=== PATIENT | female | born 1985 | race Two or more races ===

== ENCOUNTER 2021-06-04 08:26 | Outpatient (REF) | payer OTHER, SELFPAY ==
[2021-06-04 09:52] LABS: Hematocrit 33.6 % (37-47); Hemoglobin 10.4 g/dl (12.0-16.0); Mean Corpuscular Hemoglobin 25.4 pg (27.0-33.0); Mean Platelet Volume 9.4 fL (9.4-12.3); Platelet Count 368 X10*3/uL (160-400); Red Cell Distribution Width 14.2 % (11.0-16.0); White Blood Count 7.2 X10*3/uL (4.8-10.8)
[2021-06-04 10:27] LABS: Alanine Aminotransferase 10 U/L (0-31); Albumin Level 4.1 g/dL (3.5-5.0); Alkaline Phosphatase 85 U/L (39-117); Anion Gap 10 (12-20); Aspartate Amino Transferase 14 U/L (5-31); Bilirubin Total 0.4 mg/dL (0.0-1.0); Blood Urea Nitrogen 6 mg/dL (9-16); Calcium 9.7 mg/dL (8.4-10.2); Carbon Dioxide 26 mmol/L (22-29); Chloride 105 mmol/L (96-108); Estimated Glomerular Filt Rate > 60; Glucose Random 85 mg/dL (60-115); Potassium 3.9 mmol/L (3.3-5.1); Sodium 137 mmol/L (135-145); Total Protein 7.2 g/dL (6.5-8.0)
[2021-06-04 10:56] LABS: HCG Quantitative < 2 mIU/mL; Thyroid Stimulating Hormone 0.32 uIU/mL (0.32-4.0)
[2021-06-05 04:13] LABS: CT PCR NOT DETECTED (Not Detect.); NG PCR NOT DETECTED (Not Detect.)
[2021-06-05 13:00] LABS: BV Int Neg Control Negative (Negative); BV Int Pos Control Positive (Positive)
[2021-06-06 17:51] LABS: HPV mRNA E6/E7 rflx Not Detected (Not Detected)
== END 2021-06-04 08:27 | disposition home or self-care (01) ==
LOC: HO.LAB 08:26
PROVIDERS: Visit Provider Advanced Practice Midwife
DX: Z01.419 Encounter for gynecological examination (general) (routine) without abnormal findings (principal); N94.6 Dysmenorrhea, unspecified; R10.2 Pelvic and perineal pain; N92.1 Excessive and frequent menstruation with irregular cycle; N93.9 Abnormal uterine and vaginal bleeding, unspecified; L68.0 Hirsutism; R10.9 Unspecified abdominal pain; R17 Unspecified jaundice; Z79.899 Other long term (current) drug therapy; Z80.3 Family history of malignant neoplasm of breast
CPT/HCPCS: 36415; 80053; 84443; 84702; 85027; 87480; 87491; 87510; 87591; 87624; 87660; 88142

== ENCOUNTER 2021-06-23 11:42 | Outpatient (REF) | payer OTHER, SELFPAY ==
--- NOTE | ~2021-06-23 | US_ITS ---
EXAMINATION: US PELVIS AND TRANSVAGINAL CLINICAL INFORMATION: Irregular menstruation. LMP 05/15/2021 x 1 week and heavy. COMPARISON: None TECHNIQUE: Transabdominal and transvaginal imaging of the pelvis is performed. FINDINGS: The uterus is anteverted measuring 9.4 cm in length, 3.7 cm in AP, and 5.2 cm wide. The endometrial thickness is 1.0 cm and is slightly heterogeneous. The uterus is homogeneous in echotexture. There is a small anechoic fluid collection at the site of 3 previous C-sections. There are tiny cysts anterior to the endometrium. The right ovary measures 3.3 x 2.1 x 1.9 cm and volume 4.6 mL. There are small follicles with a dominant follicle visualized. There is an echogenic 0.2 cm tiny calcification seen. The left ovary measures 2.6 x 1.2 x 1.9 cm and volume 1.9 mL. Previously, the left ovary measured 2.5 x 1.1 x 2.2 cm. There is no free fluid in the cul-de-sac. US/US pelvic and transvaginal IMPRESSION: Small follicles in the right ovary with a dominant follicle seen. There is an echogenic calcification, as well. Unremarkable left ovary and uterus. There is a small fluid collection anterior the lower endometrial canal at the area of 3 previous C-sections. The endometrium is slightly heterogeneous but no focal lesion seen.
== END 2021-06-23 11:43 | disposition home or self-care (01) ==
LOC: HO.US 11:42
PROVIDERS: Visit Provider Advanced Practice Midwife
DX: R10.2 Pelvic and perineal pain (principal); N92.6 Irregular menstruation, unspecified
CPT/HCPCS: 76830; 76856

== ENCOUNTER → 2021-07-07 11:10 | Outpatient (BNVA) | payer OTHER, SELFPAY | PROVIDERS: Visit Provider Advanced Practice Midwife ==

== ENCOUNTER → 2021-07-31 09:56 | Outpatient (BNVA) | payer OTHER, SELFPAY | PROVIDERS: Visit Provider Advanced Practice Midwife | DX: N93.9 Abnormal uterine and vaginal bleeding, unspecified (principal) | CPT/HCPCS: 58100; 99212 ==

== ENCOUNTER → 2021-08-07 12:42 | Outpatient (BNVA) | payer OTHER, SELFPAY | PROVIDERS: Visit Provider Obstetrics & Gynecology | DX: N93.9 Abnormal uterine and vaginal bleeding, unspecified (principal) | CPT/HCPCS: 99212 ==

== ENCOUNTER 2021-08-15 06:05 | Day surgery (SDC) | payer OTHER, SELFPAY ==
[2021-08-15] VITALS (9 sets, daily range): BP systolic 97–117; BP diastolic 52–68; PULSE 59–78; RESP 16–17; TEMP 36–36.5; O2SAT 97–100; BMI 22.8
[2021-08-15 06:28] LABS: UPreg QC Valid YES; Urine Pregnancy NEGATIVE (NEGATIVE)
--- NOTE | 2021-08-15 07:22 | HO.ANESPROP2 ---
HPI - Anesthesia Eval Consult details Narrative: 36 yo female patient for D&C, hysteroscopy PMF Active Problems Active Problems: All Active Problems (Updated 07/31/21 @ 10:44 by Clinton Ibrahim) Abnormal uterine bleeding (Acute) Irregular menses (Acute) Dysmenorrhea (Acute) On humira. Not sure what for ?uveitis Depression Asthma. Used inhaler this morning Past Medical History Medical History (Updated 08/15/21 @ 07:32 by Shannan Chong MD) Asthma Migraine with aura Family History Family history of problems with anesthesia: No Surgical History Surgical History Hx of section History of Problems with Anesthesia: No Social History Social History Alcohol intake: never Patient Tobacco Use Status: Never used Tobacco Use of substances other than those prescribed or required for medical reasons: No Are you DNR?: No Advance Directives: No Advance Directives Information Provided: Yes Sexual orientation: Straight/Heterosexual Gender identity: Female Meds Allergies Allergy/AdvReac Type Severity Reaction Status Date / Time No Known Allergies Allergy Verified 08/15/21 06:38 [No Known Allergies*] Home Medications Medication Instructions Recorded Confirmed Last Taken Type adalimumab 40 mg/0.4 mL 40 mg SUBCUT Q2W 06/04/21 06/04/21 Unknown History subcutaneous pen kit montelukast 10 mg tablet 10 mg PO BEDTIME 06/04/21 06/04/21 Unknown History paroxetine HCl 20 mg tablet 20 mg PO DAILY 06/04/21 06/04/21 Unknown History Exam Exam Date and Time: August 15, 2021 0722 Height,Weight and Vital Signs: Height 5 ft 5 in Weight 62.142 kg Last Vital Signs Temp 97.7 F 08/15/21 06:24 Pulse 67 08/15/21 06:24 Resp 16 08/15/21 06:24 BP 106/68 08/15/21 06:24 Pulse Ox 100 08/15/21 06:24 Pertinent Lab Results Pertinent Lab Results: Laboratory Tests 08/15/21 06:12 Urine Test NEGATIVE Airway Mallampati Class: II TM Dist: >3cm Neck ROM: Full Loose/Missing/Broken Teeth: Yes (Missing top right) Heart: RRR Lungs: CTAB Assessment and Plan Assessment Anesthesia Assessment: Anesthesia Plan Discussed and Chart Reviewed Final Anesthetic Review Family History of Problems with Anesthesia: No History of Problems with Anesthesia: No NPO: Yes ASA Class: II Final Preanesthetic Review: No Changes in Pt Med Stat, Meds/Allgs Chart Reviewed, Consent Obtained/Reviewed and Anes Risks/Benef Reviewed Patient Risk: Low Procedure Risk: Low Assessment/Block/Sedation in SS: Assess/Block/Sedation-SS Anesthetic Plan Anesthetic Plan: GA Disposition: Standard PACU
[2021-08-15] MEDS: Lactated Ringers 1,000 ML 100 ML IVCONT (07:25)
--- NOTE | 2021-08-15 07:35 | MHC.SHP ---
Pre-Procedural Eval Section A Date of Service: 08/15/21 The patient is an INPATIENT: No Changes since office visit: No Cold of Flu in the past 2 weeks, No New Medical Problems, No Changes in Medication and No Patient answered all questions The History & Physical has been completed within 30 days and I have reviewed it.: Yes Section B Chief Complaint: uterine and vaginal bleeding Allergies: Allergies Allergy/AdvReac Type Severity Reaction Status Date / Time No Known Allergies Allergy Verified 08/15/21 06:38 [No Known Allergies*] Plan Diagnosis/Plan: Unchanged I have reviewed the history and physical and performed a pertinent physical examination on my patient. No changes have occurred unless specified.
--- NOTE | 2021-08-15 08:05 | PM.OP ---
Brief Operative Note Date of Service: 08/15/21 Pre-op diagnosis: Abnormal uterine bleeding Post-op diagnosis: same (With normal uterine cavity) Procedure: Hysteroscopy D&C Surgeon: Ruddy Cassidy MD Anesthesia: MAC Was an Customer Program Manager used for this Procedure?: No Estimated blood loss (mL): 0 Pathology: other (Endometrial Scrapping. ) Condition: stable Disposition: PACU
--- NOTE | 2021-08-15 08:06 | P.OP_ITS ---
Operative Note Operative Note Date of Service: 08/15/21 Narrative: Preop Diagnosis: Abnormal uterine bleeding Operation: Diagnostic Hysteroscopy, Dilataion & Curettage Post Op Diagnosis: Normal uterine cavity and endocervical cannot QBL: Minimal Anesthesia: MAC Surgeon: Ruddy Cassidy MD Immigration Case Manager: None Complication: None Pathology: Endometrial Scrapings Complication: None Pathology: Endometrial Scrapings Procedure: The patient was put in the dorsal lithotomy position, scrubbed, and draped in the usual manner. A sterile speculum was inserted in the patient's vagina. The anterior lip of the cervix was grasped with a single tooth tenaculum. The cervix was dilated up to 5 mm, then the scope was inserted in the patient's uterus. Inspection revealed normal endometrial cavity and endocervical cannot. Sharp curettings was carried on with moderate amount of tissues retrieved. At the end of the procedure, all instruments were taken out of the patient uterine and vaginal cavity. The single tooth tenaculum was removed and homeostasis was assured using pressure,. The patient tolerated the procedure well and was transferred to the PACU in a stable condition.
[2021-08-15] MEDS: Ketorolac Tromethamine 15 MG/ML VIAL IVPUSH (08:42)
[2021-08-15] MEDS: oxyCODONE HCl Immed Release 5 MG TABLET PO (08:43)
[2021-08-15] MEDS: fentaNYL citrate/PF 100 MCG/2 ML VIAL 25 MCG IVPUSH (08:51)
== END 2021-08-15 09:50 | disposition home or self-care (01) ==
PROVIDERS: Visit Provider Obstetrics & Gynecology
PROC: 0UDB8ZZ Extraction of Endometrium, Via Natural or Artificial Opening Endoscopic (ICD-10-PCS; CPT 58558; principal; 2021-08-15 07:30)
DX: N93.9 Abnormal uterine and vaginal bleeding, unspecified (principal); J45.909 Unspecified asthma, uncomplicated
CPT/HCPCS: 58558; 81025; 88305; J1100; J1885; J2250; J2405; J3010

== ENCOUNTER → 2021-08-28 12:18 | Outpatient (BNVA) | payer OTHER, SELFPAY | PROVIDERS: Visit Provider Obstetrics & Gynecology ==